=== PATIENT | female | born 1990 | race Caucasian/White ===

== ENCOUNTER → 2023-08-18 12:59 | Outpatient (CLI) | payer OTHER, SELFPAY ==
[2023-08-18 19:32] LABS: Prolactin 9.7 ng/mL (3.0-18.6)
[2023-08-18 19:46] LABS: TSH w/ Reflex to FT4 1.05 uIU/mL (0.47-4.68)
[2023-08-18 20:40] LABS: Follicle Stimulating Hormone 5.48 mIU/mL
[2023-08-25 13:22] LABS: Estradiol 40.4 pg/mL (.); Estriol,Serum <0.1 ng/mL (.); Estrone,Serum 32 pg/mL (27-231)
[2023-08-25 20:55] LABS: Anti Mullerian Hormone 5.74 ng/mL (.)
== END ==
PROVIDERS: Visit Provider Nurse Practitioner Adult Health
DX: N92.0 Excessive and frequent menstruation with regular cycle (principal)
CPT/HCPCS: 82397; 82670; 82677; 82679; 83001; 84146; 84443

== ENCOUNTER → 2024-08-11 12:13 | Outpatient (CLI) | payer OTHER, SELFPAY | PROVIDERS: Visit Provider Nurse Practitioner Adult Health | DX: N91.4 Secondary oligomenorrhea (principal) | CPT/HCPCS: 84144 ==

== ENCOUNTER → 2024-10-27 13:08 | Outpatient (CLI) | payer OTHER, SELFPAY ==
[2024-10-27 20:13] LABS: Follicle Stimulating Hormone 5.54 mIU/mL
[2024-10-27 20:16] LABS: Prolactin 8.4 ng/mL (3.0-18.6)
[2024-10-27 20:30] LABS: Estradiol, Total 33.1 pg/mL
== END ==
PROVIDERS: PCP Nurse Practitioner Adult Health; Visit Provider Nurse Practitioner Adult Health
DX: N91.4 Secondary oligomenorrhea (principal); N92.0 Excessive and frequent menstruation with regular cycle
CPT/HCPCS: 82397; 82670; 83001; 84146; 84443